=== PATIENT | male | born 1960 | race Caucasian/White ===

== ENCOUNTER 2016-11-01 14:30 | Outpatient (RCR) | payer MEDICARE, MEDICAID ==
[~2016-11-01 14:30] MED LIST: ALEN70TA47 PO; ASCO100T6 PO; FRSM20T PO; LEVE250T18 PO; LEVE500T6 PO; MELO-249; MULT-954 PO; SPRN25T PO
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
== END 2016-11-09 12:00 | disposition home or self-care (01) ==
LOC: PT 14:30
PROVIDERS: ATTEND Family Medicine
DX: E11.622 Type 2 diabetes mellitus with other skin ulcer (principal); L97.311 Non-pressure chronic ulcer of right ankle limited to breakdown of skin; E11.621 Type 2 diabetes mellitus with foot ulcer
CPT/HCPCS: 97161; 97597; G8990; G8991